=== PATIENT | female | born 1965 | race Two or more races ===

== ENCOUNTER → 2017-03-04 | Outpatient (CLI) | payer BC ==
--- NOTE | 2017-03-04 19:00 | RAD ---
Indication: Headache, worse over the last 3 days. Axial imaging through the brain was performed without contrast. One or more of the following individualized dose reduction techniques were utilized for this examination: 1. Automated exposure control 2. Adjustment of the mA and/or kV according to patient size 3. Use of iterative reconstruction technique No prior studies are available for comparison. The ventricles and sulci are within normal limits. No sulcal effacement, midline shift or hemorrhage is detected. The cisterns are patent. The visualized paranasal sinuses are clear. IMPRESSION: No acute intracranial process is detected. Electronically signed by: Freddie Gordon MD (03/04/2017 6:56 PM) [facility]
== END | disposition home or self-care (01) ==
LOC: CT 18:24
PROVIDERS: ATTEND Preventive Medicine Occupational Medicine
DX: R53.82 Chronic fatigue, unspecified (principal); R51 Headache
CPT/HCPCS: 70450